=== PATIENT | male | born 1985 | race Caucasian/White ===

== ENCOUNTER 2016-11-11 09:37 | Emergency (ER) | payer MEDICAID, OTHER ==
[2016-11-11] MEDS ORDERED: Sodium Chloride 0.9% 1,000 ML IV ONE (10:23)
[2016-11-11] MEDS ORDERED: Ketorolac 30 MG/ML SDV IVPUSH ONE (10:23)
--- NOTE | 2016-11-11 10:33 | EDM.PDOC ---
[id number]: LEFT SIDE PAIN Time Seen by Provider: 11/11/16 09:48 Source of Information: Reports: Patient History Limitations: Reports: No Limitations - History of Present Illness INITIAL COMMENTS - FREE TEXT/NARRATIVE: The patient is a previously healthy 31-year-old male with a chief complaint of abdominal pain. The patient states he felt fine yesterday. Today he woke up with pain in his belly. He states that the pain is worse on the left side. The pain is sharp. Worse with movement. Moderate severity. No nausea or vomiting. He was able to eat this morning. No constipation, he had a normal bowel movement today. No diarrhea. No dysuria or hematuria or difficulty urinating. No fever. No recent illness. No cough or trouble breathing. No chest pain. Left Lower Abdomen Pain Score (Numeric/FACES): 8 - Related Data Allergies Allergy/AdvReac Type Severity Reaction Status Date / Time No Known Allergies Allergy Verified 11/11/16 09:48 Home Meds: Home Meds . [No Known Home Meds] 11/11/16 [History] Past Medical History - Past Health History Medical/Surgical History: Denies Medical/Surgical History Social & Family History - Tobacco Use Smoking Status *Q: Never Smoker - Recreational Drug Use Recreational Drug Use: No ED ROS GENERAL - Review of Systems Review Of Systems: See Below Constitutional: Denies: Fever HEENT: Reports: No Symptoms Respiratory: Denies: Shortness of Breath, Cough Cardiovascular: Denies: Chest Pain Endocrine: Reports: No Symptoms GI/Abdominal: Reports: Abdominal Pain. Denies: Constipation, Diarrhea, Nausea, Vomiting : Denies: Dysuria, Hematuria Musculoskeletal: Reports: No Symptoms Skin: Reports: No Symptoms Neurological: Reports: No Symptoms Psychiatric: Reports: No Symptoms ED EXAM, GI/ABD - Physical Exam Exam: See Below Exam Limited By: No Limitations General Appearance: Alert, WD/WN, No Apparent Distress Ears: Normal External Exam Nose: Normal Inspection Throat/Mouth: Normal Inspection, Normal Oropharynx, No Airway Compromise Head: Atraumatic Neck: Normal Inspection, Supple, Non-Tender, Full Range of Motion Respiratory/Chest: No Respiratory Distress, Lungs Clear, Normal Breath Sounds, Chest Non-Tender Cardiovascular: Normal Peripheral Pulses, Regular Rate, Rhythm, No Edema, No Murmur GI/Abdominal: Soft, Other (+LLQ and LUQ TTP, no rebound/guarding) Back Exam: Normal Inspection. No: CVA Tenderness (L), CVA Tenderness (R) Extremities: Normal Inspection Neurological: Alert, Oriented, Normal Cognition, No Motor/Sensory Deficits Psychiatric: Normal Affect, Normal Mood Skin Exam: Warm, Dry, Intact, Normal Color, No Rash Course - Vital Signs Last Recorded V/S: Last Vital Signs Temp 36.9 C 11/11/16 14:50 Pulse 102 H 11/11/16 14:50 Resp BP 145/96 H 11/11/16 14:50 Pulse Ox 95 11/11/16 14:50 - Orders/Labs/Meds Orders: Active Orders 24 hr Category Date Time Status Sodium Chloride 0.9% [Saline Flush] Med 11/11/16 12:03 Active 10 ml FLUSH ONETIME PRN Medication Orders Sodium Chloride (Saline Flush) 10 ml FLUSH ONETIME PRN PRN Reason: IV FLUSH Labs: Laboratory Tests 11/11/16 11/11/16 11/11/16 Range/Units 10:00 10:48 10:48 WBC 7.25 (4.23-9.07) K/mm3 RBC 5.32 (4.63-6.08) M/mm3 Hgb 16.0 (13.7-17.5) gm/L Hct 45.3 (40.1-51.0) % MCV 85.2 (79.0-92.2) fl MCH 30.1 (25.7-32.2) pg MCHC 35.3 (32.2-35.5) g/dl RDW Std Deviation 41.8 (35.1-43.9) fL Plt Count 222 (163-337) K/mm3 MPV 10.6 (9.4-12.3) fl Neut % (Auto) 61.2 (34.0-67.9) % Lymph % (Auto) 24.4 (21.8-53.1) % Gray % (Auto) 11.6 (5.3-12.2) % Eos % (Auto) 2.2 (0.8-7.0) Baso % (Auto) 0.3 (0.1-1.2) % Neut # (Auto) 4.44 (1.78-5.38) K/mm3 Lymph # (Auto) 1.77 (1.32-3.57) K/mm3 Gray # (Auto) 0.84 H (0.30-0.82) K/mm3 Eos # (Auto) 0.16 (0.04-0.54) K/mm3 Baso # (Auto) 0.02 (0.01-0.08) K/mm3 Sodium 141 (136-145) mEq/L Potassium 3.5 (3.5-5.1) mEq/L Chloride 107 (98-107) mEq/L Carbon Dioxide 26 (21-32) mEq/L Anion Gap 11.5 (5-15) BUN 12 (7-18) mg/dL Creatinine 1.1 (0.7-1.3) mg/dL Est Cr Clr Drug Dosing 87.81 mL/min Estimated GFR (MDRD) > 60 (>60) mL/min BUN/Creatinine Ratio 10.9 L (14-18) Glucose 130 H (74-106) mg/dL Calcium 9.1 (8.5-10.1) mg/dL Total Bilirubin 1.5 H (0.2-1.0) mg/dL AST 26 (15-37) U/L ALT 59 (16-63) U/L Alkaline Phosphatase 47 (46-116) U/L Total Protein 7.8 (6.4-8.2) g/dl Albumin 4.2 (3.4-5.0) g/dl Globulin 3.6 gm/dL Albumin/Globulin Ratio 1.2 (1-2) Lipase 100 (73-393) U/L Urine Color Yellow (Yellow) Urine Appearance Clear (Clear) Urine pH 5.5 (5.0-8.0) Ur Specific [place] 1.025 (1.005-1.030) Urine Protein Trace H (Negative) Urine Glucose (UA) Negative (Negative) Urine Ketones Negative (Negative) Urine Occult Blood Negative (Negative) Urine Nitrite Negative (Negative) Urine Bilirubin Negative (Negative) Urine Urobilinogen 0.2 (0.2-1.0) Ur Leukocyte Esterase Negative (Negative) Urine RBC Not seen (0-5) /hpf Urine WBC 0-5 (0-5) /hpf Ur Epithelial Cells Not seen (0-5) /hpf Urine Bacteria Few (FEW) /hpf Urine Mucus Few (FEW) /hpf Meds: Medications Generic Name Dose Route Start Last Admin Trade Name Selene PRN Reason Stop Dose Admin Sodium Chloride 10 ml 11/11/16 12:03 Saline Flush FLUSH ONETIME PRN IV FLUSH Discontinued Medications Generic Name Dose Route Start Last Admin Trade Name Selene PRN Reason Stop Dose Admin Sodium Chloride 1,000 mls @ 1,000 mls/hr 11/11/16 10:23 11/11/16 11:06 Normal Saline IV 11/11/16 11:22 1,000 mls/hr ONETIME ONE Administration Iopamidol 125 ml 11/11/16 12:03 Isovue-300 (61%) IVPUSH 11/11/16 12:04 ONETIME ONE Ketorolac Tromethamine 30 mg 11/11/16 10:23 11/11/16 11:06 Toradol IVPUSH 11/11/16 10:24 30 mg ONETIME ONE Administration - Re-Assessments/Exams Free Text/Narrative Re-Assessment/Exam: 11/11/16 11:57 Labs unremarkable. Urine negative. Patient does continue to have a tender left abdomen. CT scan ordered to further evaluate. 11/11/16 15:50 CT abd shows very large scrotal inguinal hernia. Reexamined and discussed with patient. He states he's had it since he was 16. It is non-reducible but non- tender. No evidence of strangulation on CT, labs ok, and abd now nontender. Discussed need for surgery follow up and strict return precautions. Patient understood. Departure - Departure Time of Disposition: 14:19 Disposition: Home, Self-Care 01 Clinical Impression: Scrotal hernia - Discharge Information Instructions: Hernia, Adult Referrals: PCP,None [Primary Care Provider] - Forms: ED Department Discharge Additional Instructions: 1. Follow up with the surgeon of your choice as soon as possible to discuss operative repair of your large hernia 2. Return to the Emergency Department if you have any pain in the area of the hernia - My Orders Last 24 Hours: My Active Orders 11/11/16 12:03 Sodium Chloride 0.9% [Saline Flush] 10 ml FLUSH ONETIME PRN - Assessment/Plan Last 24 Hours: My Active Orders 11/11/16 12:03 Sodium Chloride 0.9% [Saline Flush] 10 ml FLUSH ONETIME PRN
[2016-11-11] MEDS ORDERED: Iopamidol 612 MG/ML 150 ML Bottle IVPUSH ONE (12:03)
[2016-11-11] MEDS ORDERED: Sodium Chloride 0.9% 10 ML Syringe FLUSH PRN (12:03)
--- NOTE | 2016-11-11 13:31 | CT ---
CT abdomen and pelvis Technique: Multiple axial sections were obtained obtained from above the dome of the diaphragm inferiorly through the pubic symphysis. Intravenous but no oral contrast was utilized. Delayed images were also obtained through the bladder. Comparison: No previous study. Findings: Visualized lung bases are clear. Mild fatty infiltration is seen throughout the liver. No focal abnormality is appreciated within the liver. Spleen appears within normal limits. Adrenal glands show no nodule. Kidneys show symmetric contrast enhancement without hydronephrosis or mass. Pancreas appears within normal limits. Aorta shows no aneurysmal dilatation. No retroperitoneal adenopathy or mesenteric abnormalities are seen. Large inguinal hernia is seen containing a portion of sigmoid colon as well as a large amount of fat. This extends into the left scrotal sac. Delayed images shows contrast within the distal ureters and within the bladder. No free fluid or inflammatory change is seen. No bowel dilatation is seen. Bone window settings were reviewed which appear within normal limits for the patient's age. Impression: 1. Large left inguinal hernia containing fat and colon extending into the scrotum. 2. Fatty infiltration within the liver. 3. No additional abnormality is appreciated on CT study of the abdomen and pelvis. Diagnostic code #3
[2016-11-11 14:57] VITALS: BP 145/96
== END 2016-11-11 14:55 | disposition home or self-care (01) ==
LOC: JD.ED 09:37
DX: K40.90 Unilateral inguinal hernia, without obstruction or gangrene, not specified as recurrent (principal)
CPT/HCPCS: 36415; 74177; 80053; 81001; 83690; 85025; 96361; 96374; 99284; J1885; J7040